=== PATIENT | female | born 1995 | race Caucasian/White ===

== ENCOUNTER 2023-09-15 10:13 | Emergency (ER) | payer MEDICAID ==
[~2023-09-15] VITALS: Ht 149.9 cm; Wt 49.0 kg
[2023-09-15 10:24] VITALS: BP_SYST 128; PULSE 87; RESP 16; TEMP 98.7; O2SAT 100
[2023-09-15 10:59] VITALS: BP_SYST 128; PULSE 87; RESP 16; TEMP 98.7; O2SAT 100
[2023-09-15 11:01] LABS: INFLUENZA TYPE A Negative (NEGATIVE); INFLUENZA TYPE B NEGATIVE (NEGATIVE)
[2023-09-15] MEDS ORDERED: DIPH25TA62 PO (11:27)
[2023-09-15] MEDS ORDERED: PSEU30TA36 PO (11:27)
== END 2023-09-15 11:39 | disposition home or self-care (01) ==
LOC: SED 10:13
DX: J40 Bronchitis, not specified as acute or chronic (principal); Z20.822 Contact with and (suspected) exposure to COVID-19
CPT/HCPCS: 36415; 71045; 99284